=== PATIENT | female | born 1990 | race Caucasian/White ===

== ENCOUNTER → 2017-04-25 12:02 | Outpatient (CLI) | payer MEDICARE, MEDICAID | END | disposition home or self-care (01) | LOC: D.LDO 12:02 | DX: O36.8130 Decreased fetal movements, third trimester, not applicable or unspecified (principal); Z3A.33 33 weeks gestation of pregnancy ==

== ENCOUNTER 2017-06-06 10:39 | Inpatient (IN) | payer MEDICARE, MEDICAID ==
[~2017-06-06] VITALS: Ht 160 cm; Wt 111.6 kg
--- NOTE | ~2017-06-06 | DS ---
PATIENT:TELLY LAWSON :89 MEDICAL RECORD: [id number] DISCHARGE SUMMARY ADMISSION DATE: 06/06/17 DISCHARGE DATE: 06/08/17 DATE OF ADMISSION: 06/06/2017. DATE OF DISCHARGE: 06/07/2017. ADMISSION DIAGNOSIS: at term. DISCHARGE DIAGNOSIS: Mother delivered at term. PROCEDURE: Induction of labor with vaginal delivery. ATTENDING: Dr. Sheffield. HISTORY OF PRESENT ILLNESS: See the H&P in the chart. SUMMARY OF HOSPITALIZATION: The patient was admitted to the hospital and underwent induction of labor with vaginal delivery without incident. At the time of discharge, she is reporting minimal to moderate lochia with a firm fundus at the umbilicus. The patient has no complaints. DISCHARGE MEDICATIONS: Will include ibuprofen. Follow up in 6 weeks at [facility]. Standard precautions have been reviewed with the patient. TRANSINT:[id number] Voice Confirmation ID: [id number] DOCUMENT ID: [id number] KELECHI SHEFFIELD MD at 0820 CC: [id number] DICTATION DATE: 06/08/17 0843 SURVEYING CREW RODMAN: 06/08/17 1142 DIS IN 06/08/[address] [facility] [address] [place] [address]
--- NOTE | ~2017-06-06 | OP ---
PATIENT NAME: TELLY LAWSON MEDICAL RECORD: [id number] :89 LOCATION:[id number] ADMISSION DATE:06/06/17 SURGEON: KELECHI TALLEY MD DATE OF OPERATION: 06/07/2017 PREDELIVERY DIAGNOSIS: Mother at term. POSTDELIVERY DIAGNOSIS: Mother delivered at term. PROCEDURE PERFORMED: Induction of labor with vaginal delivery. ATTENDING: Kelechi Talley MD ANESTHESIA: Continuous lumbar Epidural. FINDINGS: Viable female infant, Apgars 9 and 9, weight 2864 grams. No laceration. Placenta spontaneous and intact. ESTIMATED BLOOD LOSS: 300 cc. DISPOSITION: Mother and recovered in the room. TRANSINT:[id number] Voice Confirmation ID: [id number] DOCUMENT ID: [id number] KELECHI TALLEY MD at 1624 CC: [id number] DICTATION DATE: 06/07/17 1428 CENTRIFUGAL CASTING MACHINE TENDER: 06/07/17 1445 ADM IN [facility] [id number] [place] [address]
[2017-06-06 21:56] VITALS: BP 132/60; Ht 160 cm; Wt 111.6 kg
[2017-06-06] MEDS ORDERED: PRENATAL COMPLE1 TAB PO (21:56)
[2017-06-06 22:49] LABS: HEMATOCRIT 30.4 % (36.0-48.0); HEMOGLOBIN 10.4 g/dL (12-16); MCH 30.5 pg (26.0-34.0); MCHC 34.2 g/dL (31.0-37.0); MCV 89.1 fL (80.0-100.0); MEAN PLATELET VOLUME 11.8 fL (7.4-10.4); RBC 3.41 10x6/uL (4.00-5.40); RDW 13.9 % (11.5-14.5); WBC 8.5 10x3/uL (4.8-10.8)
[2017-06-07 19:26] VITALS: BP 126/75
[2017-06-08 04:15] LABS: RAPID PLASMA REAGIN Non Reactive (Non Reactive)
[2017-06-08 08:30] VITALS: BP 136/67
[2017-06-08] MEDS ORDERED: IBUPROFEN800 MG PO (12:19)
== END 2017-06-08 16:46 | disposition home or self-care (01) | DRG 775 ==
LOC: D.LD 10:39
PROVIDERS: Obstetrics & Gynecology
PROC: 10907ZC Drainage of Amniotic Fluid, Therapeutic from Products of Conception, Via Natural or Artificial Opening (ICD-10-PCS; principal; 2017-06-06)
PROC: 10E0XZZ Delivery of Products of Conception, External Approach (ICD-10-PCS; 2017-06-06)
PROC: 3E033VJ Introduction of Other Hormone into Peripheral Vein, Percutaneous Approach (ICD-10-PCS; 2017-06-06)
DX: O36.0930 Maternal care for other rhesus isoimmunization, third trimester, not applicable or unspecified (principal); O99.334 Smoking (tobacco) complicating childbirth; Z37.0 Single live birth; Z3A.39 39 weeks gestation of pregnancy